=== PATIENT | female | born 1955 | race Caucasian/White ===

== ENCOUNTER 2020-09-13 23:24 | Emergency (ER) | payer MEDICARE ==
[~2020-09-13] VITALS: Ht 162.6 cm; Wt 57.0 kg
[2020-09-13] MEDS ORDERED: MORPHINE SULFATE 4 MG/ML, 1ML ONE (23:52)
[2020-09-13] MEDS ORDERED: ONDANSETRON 2MG/ML, 2ML ONE (23:52)
[2020-09-13 23:53] LABS: BASOPHILS % (AUTO) 1 % (0-1); EOSINOPHILS % (AUTO) 3 % (1-7); LYMPHOCYTES % (AUTO) 27 % (22-44); MEAN CORPUSCULAR HEMOGLOBIN 33.8 pg (27.0-34.8); MEAN CORPUSCULAR HGB CONC 35.1 g/dL (32.4-35.8); MEAN PLATELET VOLUME 8.5 fL (7.4-10.4); MONOCYTES % (AUTO) 8 % (2-9); NEUTROPHILS % (AUTO) 61 % (42-75); PLATELET COUNT 156 x10^3/uL (130-400); RED BLOOD COUNT 4.79 x10^6/uL (3.82-5.3); RED CELL DISTRIBUTION WIDTH 13.1 % (9.6-15.2)
[2020-09-14] MEDS ORDERED: SODIUM CHLORIDE FLUSH 10ML SYR IVF ONE
[2020-09-14] MEDS ORDERED: MORPHINE SULFATE 4 MG/ML, 1ML IVPush PRN
[2020-09-14] MEDS ORDERED: ONDANSETRON 2MG/ML, 2ML IVPush ONE
--- NOTE | 2020-09-14 00:01 | NUR ---
ASSUMED CARE OF PATIENT. PATIENT BIB [facility] FOR BILATERAL LOW BACK PAIN. PT ALSO REPORTS SHE FEELS LIKE HER ABD IS "SWELLING." PT IS GOING TO HAVE A HYSTERECTOMY IN TWO WEEKS. PT REPORTS SHE HAS TUMORS IN HER UTERUS. VS STABLE. NO ACUTE DISTRESS NOTED. AT BEDSIDE. WILL CONTINUE TO MONITOR.
--- NOTE | 2020-09-14 00:03 | NUR ---
PT WENT TO CT
[2020-09-14 00:06] LABS: ALBUMIN 3.8 g/dL (3.4-5.0); ANION GAP 7 mmol/L (5-15); CALCIUM 9.1 mg/dL (8.5-10.1); CHLORIDE 111 mmol/L (98-107)
[2020-09-14 00:10] LABS: MICROSCOPIC AUTO
[2020-09-14 00:10] LABS: ALANINE AMINOTRANSFERASE 25 U/L (12-78); ALKALINE PHOSPHATASE 54 U/L (45-117); BILIRUBIN,TOTAL 0.5 mg/dL (0.2-1.0); CREATININE 0.76 mg/dL (0.55-1.02); TOTAL PROTEIN 7.4 g/dL (6.4-8.2)
--- NOTE | 2020-09-14 00:49 | NUR ---
PT RESTING IN ROOM. VS STABLE. NO ACUTE DISTRESS NOTED. CALL LIGHT IN PLACE. WILL CONTNUE TO MONITOR.
[2020-09-14] MEDS ORDERED: KETOROLAC 30 MG/1 ML IVPush ONE (01:30)
[2020-09-14] MEDS ORDERED: KETOROLAC 30 MG/1 ML ONE (01:36)
[2020-09-14 02:07] VITALS: BP 110/80
[2020-09-16] MEDS ORDERED: Vitamin d PO (16:22)
[2020-09-16] MEDS ORDERED: [UNRECOGNIZED DRUG - OTHER] PO (16:22)
[2020-09-16] MEDS ORDERED: VALA500T4 PO (16:22)
[2020-09-16] MEDS ORDERED: HYDROEYE PO (16:22)
[2020-09-16] MEDS ORDERED: ESTRIOL VG (16:22)
[2020-09-16] MEDS ORDERED: ESTRACE TP (16:22)
[2020-09-16] MEDS ORDERED: vitamin c PO (16:22)
[2020-09-16] MEDS ORDERED: PREBIOTIC PO (16:22)
[2020-09-16] MEDS ORDERED: ESTROGEN TP (16:22)
[2020-09-16] MEDS ORDERED: CYAN1TAB29 PO (16:22)
[2020-09-16] MEDS ORDERED: Progesterone TP (16:22)
[2020-09-16] MEDS ORDERED: Testosterone TP (16:22)
[2020-09-16] MEDS ORDERED: [UNRECOGNIZED DRUG - OTHER] PO (16:22)
[2020-09-16] MEDS ORDERED: VITA1TAB19 PO (16:22)
[2020-09-16] MEDS ORDERED: Co Q-10 PO (16:22)
[2020-09-16] MEDS ORDERED: COMPOUNDED THYROID PO (16:22)
== END 2020-09-14 02:09 | disposition home or self-care (01) ==
LOC: ED 23:49
DX: R31.29 Other microscopic hematuria (principal); R10.12 Left upper quadrant pain; N20.2 Calculus of kidney with calculus of ureter; R10.32 Left lower quadrant pain; D25.1 Intramural leiomyoma of uterus; R11.0 Nausea; E03.9 Hypothyroidism, unspecified
CPT/HCPCS: 36415; 74176; 80053; 81001; 85025; 96374; 96375; 99284; J1885; J2270; J2405

== ENCOUNTER → 2020-09-16 | Outpatient (CLI) | payer MEDICARE ==
[~2020-09-16] MED LIST: COMPOUNDED THYROID PO; CYAN1TAB29 PO; Co Q-10 PO; ESTRACE TP; ESTRIOL VG; ESTROGEN TP; HYDROEYE PO; PREBIOTIC PO; Progesterone TP; Testosterone TP; VALA500T4 PO; VITA1TAB19 PO; Vitamin d PO; [UNRECOGNIZED DRUG - OTHER] PO; [UNRECOGNIZED DRUG - OTHER] PO; vitamin c PO
== END | disposition home or self-care (01) ==
LOC: STAR 15:23
PROVIDERS: ATTEND Obstetrics & Gynecology
DX: Z01.818 Encounter for other preprocedural examination (principal); N95.0 Postmenopausal bleeding; D21.9 Benign neoplasm of connective and other soft tissue, unspecified; R10.2 Pelvic and perineal pain; D68.2 Hereditary deficiency of other clotting factors; I49.3 Ventricular premature depolarization; I44.4 Left anterior fascicular block
CPT/HCPCS: 93005

== ENCOUNTER 2020-09-27 07:53 | Day surgery (SDC) | payer MEDICARE ==
[~2020-09-27] VITALS: Ht 162.6 cm; Wt 56.8 kg
[~2020-09-27 07:53] MED LIST changes: +FENTANYL PF 250 MCG/5ML ONE; +MIDAZOLAM 1 MG/ML, 2ML ONE
[2020-09-27] MEDS ORDERED: CHLORHEXIDINE 15 ML UDC ONE (08:07)
[2020-09-27] MEDS ORDERED: FLUORESCEIN SODIUM 500 MG/5 ML ONE (08:09)
[2020-09-27] MEDS ORDERED: BUPIVACAINE/PF 0.25% ONE (08:09)
[2020-09-27 08:13] VITALS: BP 103/66
[2020-09-27] MEDS: LACTATED RINGERS 1,000 ML IV SCH ×2 (08:19→08:20)
[2020-09-27] MEDS ORDERED: PROMETHAZINE 25 MG/ML, 1ML IVPush PRN (08:30)
[2020-09-27] MEDS ORDERED: LABETALOL 5MG/ML, 20ML IV PRN (08:30)
[2020-09-27] MEDS ORDERED: CHLORHEXIDINE 15 ML UDC PO ONE (08:30)
[2020-09-27] MEDS ORDERED: HYDROmorphone 1 MG/ML, 1ML INJ IVPush PRN (08:30)
[2020-09-27] MEDS ORDERED: MEPERIDINE/PF 25MG/0.5ML IVPush PRN (08:30)
[2020-09-27] MEDS ORDERED: morphine SULFATE 10 MG/ML, 1ML IVPush PRN (08:30)
[2020-09-27] MEDS ORDERED: hydrALAzine 20 MG/ML, 1ML IV PRN (08:30)
[2020-09-27] MEDS ORDERED: HALOPERIDOL 5 MG/ML IV PRN (08:30)
[2020-09-27] MEDS ORDERED: ACETAMINOPHEN 325 MG TABLET PO PRN (08:30)
[2020-09-27] MEDS ORDERED: DOCU-131 PO (09:01)
[2020-09-27] MEDS ORDERED: KETO10TA PO (09:01)
[2020-09-27] MEDS ORDERED: OXYC1TAB14 PO (09:01)
[2020-09-27] MEDS ORDERED: FENTANYL PF 100 MCG/2ML ONE ×6 (09:46→12:02)
[2020-09-27] MEDS ORDERED: FENTANYL PF 250 MCG/5ML ONE (10:27)
[2020-09-27] MEDS ORDERED: OXYcodone 5 MG/5 ML ORAL.SOL UDC ONE (11:46)
[2020-09-27] MEDS ORDERED: ACETAMINOPHEN 650 MG/20.3 ML UDC ONE (11:47)
[2020-09-27] MEDS: FENTANYL PF 100 MCG/2ML IV PRN ×3 (11:54→12:07)
[2020-09-27] MEDS: OXYcodone 5 MG/5 ML ORAL.SOL UDC PO PRN ×2 (11:58→15:28)
[2020-09-27] MEDS ORDERED: ENOXAPARIN 60 MG/0.6 ML SQ ONE (12:00)
[2020-09-27] MEDS ORDERED: MEPERIDINE/PF 25MG/ML,1ML ONE (12:16)
== END 2020-09-27 16:30 | disposition home or self-care (01) ==
LOC: OUT 07:53
PROVIDERS: ATTEND Obstetrics & Gynecology
DX: N95.0 Postmenopausal bleeding (principal); D25.1 Intramural leiomyoma of uterus; N88.8 Other specified noninflammatory disorders of cervix uteri; N83.312 Acquired atrophy of left ovary; N83.311 Acquired atrophy of right ovary; D27.9 Benign neoplasm of unspecified ovary; N73.6 Female pelvic peritoneal adhesions (postinfective); D68.51 Activated protein C resistance; Z79.899 Other long term (current) drug therapy; Z88.8 Allergy status to other drugs, medicaments and biological substances; Z80.9 Family history of malignant neoplasm, unspecified; Z82.49 Family history of ischemic heart disease and other diseases of the circulatory system
CPT/HCPCS: 58554; 88307; J2175; J2250; J3010; J7120